=== PATIENT | male | born 1955 | race Caucasian/White ===

== ENCOUNTER 2025-01-25 10:55 | Inpatient (IN) ==
[~2025-01-25 10:55] MED LIST: KETAMINE HCL ONE; PRECEDEX INJ VIAL ONE; XYLOCAINE 2 % (PLAIN) ONE
[2025-01-25] MEDS ORDERED: ULTANE GAS IN ONE (11:00)
[2025-01-25] MEDS ORDERED: KETAMINE HCL ONE (11:00)
[2025-01-25] MEDS ORDERED: PRECEDEX INJ VIAL ONE (11:00)
[2025-01-25] MEDS ORDERED: XYLOCAINE 2 % (PLAIN) ONE (11:00)
--- NOTE | 2025-01-25 11:30 | DR.EXTPAIN ---
HPI Time seen Time Seen by Provider: 01/25/25 11:28 Complaint/Symptoms Chief Complaint Doctor Comments: Patient was told to come to the emergency room by personnel at Dr. Wahl office the [facility] to further evaluate drainage from his right ankle after having surgery on that ankle on December 26 of this year. PMH PMH Past Surgical History: Yes Family History Family Medical History: Diabetes Mellitus, [place] and Hypertension ROS Review of Systems Constitutional: Other (Swelling of right foot and ankle with discharge or drainage for 2 days) Eyes: No Symptoms Reported ENTM: No Symptoms Reported Respiratoy: No Symptoms Reported Cardiovascular: No Symptoms Reported Gastrointestinal/Abdominal: No Symptoms Reported Genitourinary: No Symptoms Reported Neurological: No Symptoms Reported Musculoskeletal: No Symptoms Reported Integumentary: No Symptoms Reported Hematologic/Lymphatic: No Symptoms Reported Endocrine: No Symptoms Reported Psychiatric: No Symptoms Reported PE Vital Signs Vitals: Vital Signs Temperature 97.9 F Pulse Rate 62 Pulse Rate 61 Pulse Rate 63 Pulse Rate 63 Pulse Rate 64 Pulse Rate 52 Pulse Rate 61 Pulse Rate 60 Pulse Rate 55 Pulse Rate 70 Pulse Rate 62 Pulse Rate 64 Pulse Rate 65 Pulse Rate 61 Pulse Rate 66 Pulse Rate 61 Pulse Rate 67 Pulse Rate 69 Pulse Rate 73 Respiratory Rate 20 Blood Pressure 140/63 Blood Pressure 149/61 Blood Pressure 148/65 Blood Pressure 161/70 Blood Pressure 138/58 Blood Pressure 133/64 Blood Pressure 115/56 Blood Pressure 128/59 Blood Pressure 123/53 O2 Sat by Pulse Oximetry 93 O2 Sat by Pulse Oximetry 93 O2 Sat by Pulse Oximetry 93 O2 Sat by Pulse Oximetry 94 O2 Sat by Pulse Oximetry 93 O2 Sat by Pulse Oximetry 92 O2 Sat by Pulse Oximetry 92 O2 Sat by Pulse Oximetry 92 O2 Sat by Pulse Oximetry 93 O2 Sat by Pulse Oximetry 97 O2 Sat by Pulse Oximetry 93 O2 Sat by Pulse Oximetry 95 O2 Sat by Pulse Oximetry 93 O2 Sat by Pulse Oximetry 93 O2 Sat by Pulse Oximetry 93 O2 Sat by Pulse Oximetry 91 O2 Sat by Pulse Oximetry 91 General Limitations: Physical Limitation (limited ambulation due to r foot pain and swelling) Head Head Exam: Normal Inspection Eyes Eye exam: Normal Appearance ENT ENT Exam: Normal Exam and Normal Oropharynx Neck Neck Exam: Normal Inspection, Full ROM and Trachea Midline Chest Chest Inspection: Normal Inspection and Symmetric Chest Wall Rise Respiratory Respiratory Exam: Normal Lung Sounds Bilat Respiratory Exam: Bilateral: Clear to Auscultation Cardiovascular Cardiovascular Exam: Normal Rhythm Abdominal Exam Abdominal Exam: Normal Inspection, Normal Bowel Sounds and Soft Extremities Extremities Exam: Tenderness, Edema (r foot/ankle) and Joint Swelling Upper Extremities Shoulder Exam: Normal Inspection Arm Exam: Normal Inspection Elbow Exam: Normal Inspection Forearm Exam: Normal Inspection Hand Exam: Normal Inspection Neuromotor Exam: Normal Exam Neurosensory Exam: Normal Exam Lower Extremities Hip/Pelvis Exam: Normal Inspection Upper Leg Exam: Normal Inspection Knee Exam: Normal Inspection Lower Leg Exam: Tenderness, Swelling and Erythema (r foot and ankle with drainage from r ankle) Ankle Exam: Tenderness, Swelling and Erythema (r ankle) Foot/Toe Exam: Tenderness, Swelling and Erythema (r foot) Gait Exam: Not Tested/Not Observed MDM Differential Diagnosis Differential Diagnosis: Other (osteomyelitis,cellulitis) COURSE Treatment Treatment: This patient remained relatively stable during ER evaluation. We did do a metabolic panel as patient and the sodium was 133 potassium was 5.2 BUN was 88 creatinine was 3.45 blood sugar 325 his GFR was 19 this patient also had a CBC done WBC was 9.9 hemoglobin was 9.5 hematocrit 27.8 platelets 139. His lactic acid level is only 1.[address] a CT scan of his right ankle and foot and they stated was concerning for osteomyelitis and septic arthritis with the changes that occurred there. [facility] Labs Reviewed 01/31/25 05:41 01/31/25 05:41 Laboratory: 01/25/25 11:40 Blood Blood Culture Gram Stain - Final 01/25/25 11:40 Blood Blood Culture - Final Staphylococcus Aureus 01/25/25 11:35 Blood Blood Culture Gram Stain - Final 01/25/25 11:35 Blood Blood Culture - Final Staphylococcus Aureus 01/25/25 16:15 Ankle - Right Wound Gram Stain - Final 01/25/25 16:15 Ankle - Right Wound Culture - Final Staphylococcus Aureus 01/25/25 11:32 Ankle - Right Wound Gram Stain - Final 01/25/25 11:32 Ankle - Right Wound Culture - Final Staphylococcus Aureus 01/25/25 12:47 Ankle - Right Wound Gram Stain - Final 01/25/25 12:47 Ankle - Right Wound Culture - Final Staphylococcus Aureus 01/25/25 16:12 Ankle - Right Wound Gram Stain - Final 01/25/25 16:12 Ankle - Right Wound Culture - Final Staphylococcus Aureus WBC 9.9 X10^3/uL (3.6-10.0) 01/25/25 11:35 RBC 3.12 X10^6/uL (4.7-6.0) L 01/25/25 11:35 Hgb 9.5 g/dL (13.5-18.0) L 01/25/25 11:35 Hct 27.8 % (42.0-54.0) L 01/25/25 11:35 MCV 89.2 fL (80.0-100.0) 01/25/25 11:35 MCH 30.5 pg (27.0-34.0) 01/25/25 11:35 MCHC 34.2 g/dL (33.0-35.0) 01/25/25 11:35 RDW 13.4 % (11.6-16.5) 01/25/25 11:35 Plt Count 139 X10^3/uL (150.0-450.0) L 01/25/25 11:35 MPV 9.0 fL (7.4-11.0) 01/25/25 11:35 Neut % (Auto) 87.8 % (42.0-75.0) H 01/25/25 11:35 Lymph % (Auto) 5.0 % (21.0-51.0) L 01/25/25 11:35 Crenshaw % (Auto) 6.5 % (0.0-13.0) 01/25/25 11:35 Eos % (Auto) 0.1 % (0.9-2.9) L 01/25/25 11:35 Baso % (Auto) 0.6 % (0.2-1.0) 01/25/25 11:35 Neut # (Auto) 8.7 x10^3/uL (2.2-4.8) H 01/25/25 11:35 Lymph # (Auto) 0.5 X10^3/uL (1.3-2.9) L 01/25/25 11:35 Crenshaw # (Auto) 0.6 x10^3/uL (0.3-0.8) 01/25/25 11:35 Eos # (Auto) 0.0 x10^3/uL (0.0-0.2) 01/25/25 11:35 Baso # (Auto) 0.1 X10^3/uL (0.0-0.1) 01/25/25 11:35 Absolute Nucleated RBC 0.0 /100WBC 01/25/25 11:35 Sample Site Rr 01/25/25 12:20 ABG pH 7.430 (7.35-7.45) 01/25/25 12:20 ABG pCO2 33.0 mmHg (35.0-45.0) L 01/25/25 12:20 ABG pO2 53.0 mmHg (80.0-100.0) L 01/25/25 12:20 ABG HCO3 21.9 mmol/L (22-26) L 01/25/25 12:20 ABG O2 Saturation 88.0 % (90-100) L 01/25/25 12:20 ABG Base Excess -1.8 mmol/L (-2.0-2.0) 01/25/25 12:20 Riley Test Positive 01/25/25 12:20 A-a Gradient 55.0 mmHg 01/25/25 12:20 FiO2 21.0 01/25/25 12:20 Blood Gas Comments Tolerated well au 01/25/25 12:20 Sodium 128 mmol/L (136-145) L 01/25/25 11:35 Corrected Sodium 133 mmol/L (136-145) L 01/25/25 11:35 Potassium 5.2 mmol/L (3.5-5.1) H 01/25/25 11:35 Chloride 96 mmol/L (98-107) L 01/25/25 11:35 Carbon Dioxide 23.6 mmol/L (21-32) 01/25/25 11:35 BUN 88 mg/dL (7-18) H 01/25/25 11:35 Creatinine 3.45 mg/dL (0.70-1.30) H 01/25/25 11:35 Est GFR (MDRD) Af Amer 23 (>60) L 01/25/25 11:35 Est GFR (MDRD) Non-Af 19 (>60) L 01/25/25 11:35 Glucose 325 mg/dL (65-99) H 01/25/25 11:35 Lactic Acid 1.7 mmol/L (0.4-2.0) 01/25/25 11:35 Calcium 9.4 mg/dL (8.5-10.1) 01/25/25 11:35 Corrected Calcium 10.8 mg/dL (8.5-10.1) H 01/25/25 11:35 Total Bilirubin 0.70 mg/dL (0.2-1.0) 01/25/25 11:35 AST 27 Units/L (15-37) 01/25/25 11:35 ALT 21 Units/L (12-78) 01/25/25 11:35 Alkaline Phosphatase 106 Units/L (46-116) 01/25/25 11:35 Total Protein 7.9 g/dL (6.4-8.2) 01/25/25 11:35 Albumin 2.2 g/dL (3.4-5.0) L 01/25/25 11:35 Globulin 5.7 g/dL (2.5-4.5) H 01/25/25 11:35 Albumin/Globulin Ratio 0.4 Ratio (1.1-2.1) L 01/25/25 11:35 SARS-CoV-2 (PCR) Negative (NEGATIVE) 01/25/25 11:52 Influenza Type A (PCR) Negative (NEGATIVE) 01/25/25 11:52 Influenza Type B (PCR) Negative (NEGATIVE) 01/25/25 11:52 RSV (PCR) Negative (NEGATIVE) 01/25/25 11:52 Tissue Pathology See comment. 01/25/25 16:16 Opioid Opioid Risk Tool Age (Espinoza box if 16-45): No Total: 0 Total Score Risk Category: Low Risk Copyright: Richard KLINE predicting aberrant behaviors Discharge Plan Diagnosis Discharge Problem: Ankle osteomyelitis, right, Septic arthritis, Renal insufficiency Discharge Plan Patient Disposition: 09 ADMITTED INPATIENT Condition: Stable
[2025-01-25 12:03] LABS: BASOPHILS # (AUTO) 0.1 X10^3/uL (0.0-0.1); BASOPHILS % (AUTO) 0.6 % (0.2-1.0); EOSINOPHILS % (AUTO) 0.1 % (0.9-2.9); HEMATOCRIT 27.8 % (42.0-54.0); HEMOGLOBIN 9.5 g/dL (13.5-18.0); LYMPHOCYTES # (AUTO) 0.5 X10^3/uL (1.3-2.9); MEAN CORPUSCULAR HEMOGLOBIN 30.5 pg (27.0-34.0); MEAN CORPUSCULAR HGB CONC 34.2 g/dL (33.0-35.0); MEAN CORPUSCULAR VOLUME 89.2 fL (80.0-100.0); MONOCYTES # (AUTO) 0.6 x10^3/uL (0.3-0.8); MONOCYTES % (AUTO) 6.5 % (0.0-13.0); NEUTROPHILS # (AUTO) 8.7 x10^3/uL (2.2-4.8); NEUTROPHILS % (AUTO) 87.8 % (42.0-75.0); PLATELET COUNT 139 X10^3/uL (150.0-450.0); RED BLOOD COUNT 3.12 X10^6/uL (4.7-6.0); RED CELL DISTRIBUTION WIDTH 13.4 % (11.6-16.5); WHITE BLOOD COUNT 9.9 X10^3/uL (3.6-10.0)
[2025-01-25 12:10] LABS: ALBUMIN 2.2 g/dL (3.4-5.0); CALCIUM 9.4 mg/dL (8.5-10.1); CARBON DIOXIDE 23.6 mmol/L (21-32); COR CA(FOR HYPOALB) 10.8 mg/dL (8.5-10.1); CREATININE 3.45 mg/dL (0.70-1.30); POTASSIUM 5.2 mmol/L (3.5-5.1); TOTAL PROTEIN 7.9 g/dL (6.4-8.2)
[2025-01-25 12:25] LABS: ABG ALLEN TEST POSITIVE; ABG BASE EXCESS -1.8 mmol/L (-2.0-2.0); ABG HCO3 21.9 mmol/L (22-26)
--- NOTE | 2025-01-25 14:27 | CT ---
EXAM: CT RIGHT ANKLE WITHOUT IV CONTRAST HISTORY: rt ankle wound, s/p surgery; COMPARISON: None available TECHNIQUE: Axial CT images were obtained through the right ankle without IV contrast. Coronal and sagittal reformatted images were included. All CT scans at this facility use dose modulation, iterative reconstruction, and/or weight based dosing when appropriate to reduce radiation dose to as low as reasonably achievable. FINDINGS: Lateral cutaneous/subcutaneous wound/ulcer superficial to the lateral malleolus and lateral calcaneus with adjacent punctate subcutaneous air foci. There is adjacent soft tissue thickening that appears to extend to the calcaneus and ankle. There is cortical destruction with erosive changes in the talonavicular joint, the posterior subtalar joint, as well as the distal fibula along the inferomedial aspect. There is hindfoot varus deformity with hindfoot sag. No acute fracture or dislocation. Diffuse muscle atrophy. Moderate diffuse subcutaneous edema. IMPRESSION: Lateral ankle cutaneous/subcutaneous skin wound with punctate adjacent soft tissue air that extends to the ankle. Adjacent cortical destruction and erosive changes involving the subtalar joint, talonavicular joint, and distal fibula, concerning for osteomyelitis and septic arthritis. There is hindfoot varus deformity with hindfoot sag and underlying neuropathic arthropathy may have similar appearance. THIS IS AN ELECTRONICALLY VERIFIED FINAL REPORT 01/25/2025 2:23 PM - Electronically signed by Aston Baldwin MD
[2025-01-25] MEDS ORDERED: ANCEF VIAL 1 GRAM 2 G in NS 100 ML IV 100 ML IV PRN (15:16)
[2025-01-25] MEDS: VERSED ONE (15:16)
[2025-01-25] MEDS: FENTANYL VIAL INJ 100 mcg ONE (15:16)
[2025-01-25] MEDS: DIPRIVAN VIAL 20 ML ONE (15:19)
[2025-01-25] MEDS: NS 100 ML IV 100 ML ONE (15:19)
--- NOTE | 2025-01-25 15:29 | DR.CONSULT ---
CONSULT Consultation for Day of: Date: 01/25/25 Chief Complaint Chief Complaint: ankle infection Allergies Allergies Allergy/AdvReac Type Severity Reaction Status Date / Time No Known Drug Allergies Allergy Verified 04/07/22 08:18 History of Present Illness History of Present Illness: patient who had surgery many weeks ago presents today for worsening appearance of the ankle with drainage and has started feeling bad. patient states has had a lot of drainage over the last couple days and today seems to be getting worse. Past Medical History Past Medical History: Coronary Artery Disease, Diabetes, Dyslipidemia, [place], Renal Disease and Sleep Apnea Past Surgical History Surgical History: CABG/Valve Surgery and Ortho Surgery Family History Family Medical History: Diabetes Mellitus, [place] and Hypertension Social History Does patient currently use any type of tobacco product: No Have you used tobacco products in the last 12 months: No Type of Tobacco Use: None Does any household member use tobacco: No Alcohol Use: None Medications Home Medications: No Known Drug Allergies Allergy (Verified 04/07/22 08:18) Physical Exam Vital Signs: Vital Signs Temperature 97.9 F Pulse Rate 60 Pulse Rate 55 Pulse Rate 70 Pulse Rate 62 Pulse Rate 64 Pulse Rate 65 Pulse Rate 61 Pulse Rate 66 Pulse Rate 61 Pulse Rate 67 Pulse Rate 69 Pulse Rate 73 Respiratory Rate 20 Blood Pressure 148/65 Blood Pressure 161/70 Blood Pressure 138/58 Blood Pressure 133/64 Blood Pressure 115/56 Blood Pressure 128/59 Blood Pressure 123/53 O2 Sat by Pulse Oximetry 92 O2 Sat by Pulse Oximetry 93 O2 Sat by Pulse Oximetry 97 O2 Sat by Pulse Oximetry 93 O2 Sat by Pulse Oximetry 95 O2 Sat by Pulse Oximetry 93 O2 Sat by Pulse Oximetry 93 O2 Sat by Pulse Oximetry 93 O2 Sat by Pulse Oximetry 91 O2 Sat by Pulse Oximetry 91 Skin: Other (pulses non palpable on right due to edema. CFT instant. ) Musculoskeletal: Right and Ankle (increased calor, erythema locally. has edema and medial and lateral bullae of ankle. no crepitation with palpation but does have seropurulent fluid from ankle. patient with pain in ankle with ROM but no crepitation. ) Plan (1) Other specified local infections of the skin and subcutaneous tissue: Status: Acute Narrative Support Text: IV abx given in ER. will need washout of ankle due to CT findings. will then need hospital stay due to infection. may simona IV abx. will get vascular studies and may need intervention in near future, heavy calcifications on CT seen. (2) Charcot's joint, right ankle and foot: Status: Acute Narrative Support Text: has errosions consistent with charcot but infection superficially and with free air on CT concerning for septic STJ. will washout and place abx sparkler.
[2025-01-25] MEDS: ANCEF VIAL 1 GRAM ONE (15:42)
[2025-01-25] MEDS: NS 1,000 ML IV 1,000 ML ONE (15:43)
[2025-01-25] MEDS: NS 1,000 ML IV 600 ML IV PRN (15:45)
[2025-01-25] MEDS: BETADINE SOLN ONE (15:55)
[2025-01-25] MEDS: CLEOCIN 600 MG IV PREMIX 600 MG/50 ML BAG IV ONE (15:55)
[2025-01-25] MEDS: MARCAINE 0.25% INJ ONE (15:55)
[2025-01-25] MEDS: VERSED IVP PRN (15:57)
[2025-01-25] MEDS: DIPRIVAN VIAL 200 ML IVP PRN (16:02)
[2025-01-25] MEDS: KETAMINE HCL IV PRN (16:05)
[2025-01-25] MEDS: VANCOMYCIN HCL ONE (16:08)
[2025-01-25] MEDS: TOBRAMYCIN SULFATE ONE (16:08)
[2025-01-25] MEDS: FENTANYL VIAL INJ 100 mcg IVP PRN (16:08)
[2025-01-25] MEDS: CLEOCIN 600 MG IV PREMIX 600 MG/50 ML BAG IV PRN (16:14)
[2025-01-25] MEDS: PRECEDEX INJ VIAL IVP PRN (16:18)
[2025-01-25] MEDS ORDERED: ZOFRAN INJ 4 MG VIAL IVP PRN (16:39)
--- NOTE | 2025-01-25 16:52 | RAD ---
EXAM: FRONTAL VIEW CHEST X-RAY HISTORY: Short of breath COMPARISON: 12/18/2024 FINDINGS: Midl ine sternotomy wires are again noted but are poorly visualized on this exam No focal consolidation is seen. The heart size is within normal limits. The mediastinum is unremarkable. There is no evidence of pleural effusion or gross pneumothorax. The trachea is midline. IMPRESSION: No focal consolidation is seen. The heart size is normal. THIS IS AN ELECTRONICALLY VERIFIED FINAL REPORT 01/25/2025 4:49 PM - Electronically signed by Genaro Poon MD
[2025-01-25] MEDS: NS 1,000 ML IV 1,000 ML IV SCH (17:16)
[2025-01-25 17:55] VITALS: BMI 40.7
[2025-01-25] MEDS: TYLENOL 325 MG TAB PO PRN (18:57)
[2025-01-25] MEDS: DILAUDID INJ IVP PRN (18:58)
[2025-01-25] MEDS ORDERED: PATIENT'S HOME MEDICATION (Rosuvastatin 40 mg tablet) PO SCH (21:00)
[2025-01-25] MEDS: CRESTOR TAB 10 MG PO SCH (21:44)
[2025-01-25] MEDS: COLACE CAP 100 MG PO SCH (21:45)
[2025-01-25] MEDS: CLEOCIN 600 MG IV PREMIX 600 MG/50 ML BAG IV SCH (21:46)
[2025-01-25] MEDS: SNACK - Diabetic Appropriate PO SCH (21:47)
[2025-01-25] MEDS: HumuLIN 70/30 (NovoLIN 70/30) SC SCH (21:48)
[2025-01-25] MEDS: NORCO 5/325 MG TAB PO PRN (21:54)
[2025-01-26] MEDS: NovoLIN R (or HumuLIN R) SUBCUT PRN (05:25)
[2025-01-26 05:40] LABS: CALCIUM 9.3 mg/dL (8.5-10.1); CARBON DIOXIDE 22.5 mmol/L (21-32); CREATININE 2.84 mg/dL (0.70-1.30); POTASSIUM 4.7 mmol/L (3.5-5.1)
[2025-01-26] MEDS: NS 1,000 ML IV 1,000 ML IV ONE (08:24)
[2025-01-26] MEDS: COREG TAB 25 MG PO SCH (08:25)
[2025-01-26] MEDS: ALDACTONE TAB 25 MG PO SCH (08:25)
[2025-01-26] MEDS: MICARDIS PO SCH (08:26)
[2025-01-26] MEDS: ZESTRIL TAB 40 MG PO SCH (08:26)
[2025-01-26] MEDS: PLAVIX PO SCH (08:26)
--- NOTE | 2025-01-26 09:44 | NOTE.SOAP ---
Soap Note Note for Day of Date of Exam: 01/26/25 Subjective Data Subjective Data: POD#1 InD Right foot. Denies any nausea, vomiting, chills, shortness of breath, chest pain. Did have slight fever through night. Objective Data Objective Data: Right Lower Extremity Exam: Dressing taken down. Antibiotic rods in place to lateral and medial midfoot/hindfoot. Redness is down. Swelling down slightly. Rewrapped with 4x4s, ABD, YOSHI. no signs or symptoms of DVT or PE. Assessment Assessment: POD#1 InD Right foot/ankle Plan Plan: - WB in Boot. - VSS. ad slight fever. - Labs have not been drawn yet. - Home medication restarted last night. - cultures showing gram positive gocci on day 1 of both cultures. - Pathology not back yet. - On Clindamycin right not due to creatine. - Obtaining ID consult. - Ordering arterial duplex. - recommend Daniel be consulted on patient as well for arterial disease to right leg. - Will see patient on Tuesday and pull antibiotic rods then.
[2025-01-27 05:55] LABS: BASOPHILS % (AUTO) 0.3 % (0.2-1.0); EOSINOPHILS # (AUTO) 0.1 x10^3/uL (0.0-0.2); EOSINOPHILS % (AUTO) 1.3 % (0.9-2.9); HEMATOCRIT 25.2 % (42.0-54.0); HEMOGLOBIN 8.6 g/dL (13.5-18.0); LYMPHOCYTES # (AUTO) 1.1 X10^3/uL (1.3-2.9); MEAN CORPUSCULAR HEMOGLOBIN 30.5 pg (27.0-34.0); MEAN CORPUSCULAR HGB CONC 34.2 g/dL (33.0-35.0); MEAN CORPUSCULAR VOLUME 89.2 fL (80.0-100.0); MEAN PLATELET VOLUME 8.9 fL (7.4-11.0); MONOCYTES # (AUTO) 0.6 x10^3/uL (0.3-0.8); MONOCYTES % (AUTO) 5.3 % (0.0-13.0); NEUTROPHILS # (AUTO) 9.1 x10^3/uL (2.2-4.8); NEUTROPHILS % (AUTO) 83.1 % (42.0-75.0); PLATELET COUNT 144 X10^3/uL (150.0-450.0); RED BLOOD COUNT 2.82 X10^6/uL (4.7-6.0); RED CELL DISTRIBUTION WIDTH 13.8 % (11.6-16.5)
[2025-01-27 06:05] LABS: ALBUMIN 1.5 g/dL (3.4-5.0); CALCIUM 9.1 mg/dL (8.5-10.1); CARBON DIOXIDE 22.2 mmol/L (21-32); COR CA(FOR HYPOALB) 11.1 mg/dL (8.5-10.1); CREATININE 2.96 mg/dL (0.70-1.30); POTASSIUM 4.4 mmol/L (3.5-5.1); TOTAL PROTEIN 6.9 g/dL (6.4-8.2)
[2025-01-27] MEDS ORDERED: PHARMACY CONSULT - VANCOMYCIN XX SCH (11:00)
[2025-01-27] MEDS: PROCRIT or EPOGEN VIAL 10,000 UNITS SC ONE (11:45)
[2025-01-27] MEDS: NS 100 ML IV 100 ML with VENOFER 100 MG IV ONE (11:45)
[2025-01-27] MEDS: ROCEPHIN VIAL 1 GRAM 1 G in NS 100 ML IV 100 ML IV SCH (12:34)
[2025-01-27] MEDS: VANCOMYCIN IV *PREMIX 2 G/400 ML BAG 2 G/400 ML PIGGYBACK IV ONE (13:28)
[2025-01-28 06:12] LABS: BASOPHILS # (AUTO) 0.1 X10^3/uL (0.0-0.1); BASOPHILS % (AUTO) 0.5 % (0.2-1.0); EOSINOPHILS # (AUTO) 0.3 x10^3/uL (0.0-0.2); EOSINOPHILS % (AUTO) 2.8 % (0.9-2.9); HEMATOCRIT 24.2 % (42.0-54.0); HEMOGLOBIN 8.3 g/dL (13.5-18.0); LYMPHOCYTES % (AUTO) 9.8 % (21.0-51.0); MEAN CORPUSCULAR HEMOGLOBIN 30.5 pg (27.0-34.0); MEAN CORPUSCULAR HGB CONC 34.2 g/dL (33.0-35.0); MEAN CORPUSCULAR VOLUME 89.1 fL (80.0-100.0); MEAN PLATELET VOLUME 8.6 fL (7.4-11.0); MONOCYTES # (AUTO) 0.6 x10^3/uL (0.3-0.8); MONOCYTES % (AUTO) 5.6 % (0.0-13.0); NEUTROPHILS # (AUTO) 8.3 x10^3/uL (2.2-4.8); NEUTROPHILS % (AUTO) 81.3 % (42.0-75.0); PLATELET COUNT 164 X10^3/uL (150.0-450.0); RED BLOOD COUNT 2.72 X10^6/uL (4.7-6.0); RED CELL DISTRIBUTION WIDTH 13.8 % (11.6-16.5); WHITE BLOOD COUNT 10.2 X10^3/uL (3.6-10.0)
[2025-01-28 06:24] LABS: ALANINE AMINOTRANSFERASE 56 Units/L (12-78); ALBUMIN 1.5 g/dL (3.4-5.0); ALKALINE PHOSPHATASE 104 Units/L (46-116); ASPARTATE AMINO TRANSFERASE 62 Units/L (15-37); BLOOD UREA NITROGEN 84 mg/dL (7-18); CALCIUM 8.9 mg/dL (8.5-10.1); CARBON DIOXIDE 20.6 mmol/L (21-32); CHLORIDE 103 mmol/L (98-107); COR CA(FOR HYPOALB) 10.9 mg/dL (8.5-10.1); COR NA(FOR HYPERGLY) 138 mmol/L (136-145); CREATININE 2.89 mg/dL (0.70-1.30); GLUCOSE 174 mg/dL (65-99); POTASSIUM 4.7 mmol/L (3.5-5.1); SODIUM 136 mmol/L (136-145); TOTAL PROTEIN 6.8 g/dL (6.4-8.2); eGFR NON BLACK RACES 23 (>60)
[2025-01-28 06:28] LABS: TOTAL PSA < 0.13 ng/mL (0.13-4.0)
--- NOTE | 2025-01-28 08:32 | NOTE.SOAP ---
Soap Note Note for Day of Date of Exam: 01/28/25 Subjective Data Subjective Data: Patient doing well this morning. His cultures grew staph. Blood cultures show the same. No repeat cultures yet, had CM order some this morning. Saw telehealth doctor this weekend. Started him on IV vanc and rocephin. ID doctor should see him this morning. Hes feeling much better today but has had some lower back pain. Objective Data Objective Data: Right Lower Extremity Exam: incision to lateral midfoot/hindfoot with sutures in place. Antibiotic kimberly in place, removed that this morning. No gross drainage. Surrounding area wet from antibiotics. Incision to medial midfoot with sutures in place. Antibiotic kimberly in place, removed that this morning. No gross drainage or pus. Surrounding area to wet fro m antibiotics. Assessment Assessment: 69 year old M infection to right foot with cultures from foot and blood cultures showing Staph aureus Plan Plan: - VSS - WBC 10.2. - Culture from foot showing staph - Blood culture showing staph, repeat blood cultures ordered today. - Was on IV Clinda, saw critical care doctor over weekend (not ID) placed him on Vanc and Rocephin. - Obtaining vascular studies today. Patient and his are okay with getting studies but are denying intervention from Dr. Sanchez. They are declining any intervention from him. They are okay with him obtaining a venous study from him. - ID supposed to see him today. - Removed antibiotic beads today, dressed with betadine dressing today to both sides. Can change as needed. - Expect patient to stay a couple more days unless blood cultures come back negative today.
[2025-01-28] MEDS: FLOMAX PO SCH (09:51)
--- NOTE | 2025-01-28 09:57 | VAS ---
EXAMINATION: LOWER EXT VENOUS, BILATERAL HISTORY: swollen legs with chronic skin changes; RT FOOT INFECTION, SWOLLEN LEGS WITH CHRONIC SKIN CHNAGES . COMPARISON: None. TECHNIQUE: Real-time, grayscale, color flow, Doppler and compression of the venous system was performed. FINDINGS: The bilateral common femoral vein(s), superficial femoral vein(s), popliteal vein(s) demonstrate normal compressibility, augmentation, respiratory variation and color flow. The posterior tibial vein(s) are patent. Soft tissue edema is noted with no focal collection.. There is no sonographic evidence for Landis's cyst. . IMPRESSION: There is no sonographic evidence for acute DVT within bilateral lower extremities. THIS IS AN ELECTRONICALLY VERIFIED FINAL REPORT 01/28/2025 9:53 AM - Electronically signed by Jose David Guzman MD
--- NOTE | 2025-01-28 09:59 | VAS ---
EXAMINATION: LOWER EXT ARTERIAL HISTORY: PVD; RT FOOT INFECTION, SWOLLEN LEGS WITH CHRONIC SKIN CHANGES . COMPARISON STUDY: None. TECHNIQUE: Pulsed wave Doppler and color Doppler imaging of the bilateral lower extremity arterial system was performed. FINDINGS: PSV (cm/sec) waveform Right MAINTENANCE MACHINIST 145 biphasic Right SFA Prox. 147 biphasic Right SFA mid 136 monophasic Right SFA distal 114 monophasic Right Pop art 102 monophasic Right DPA 65 monophasic Right IN PROCESS INSPECTOR 152 monophasic Left MAINTENANCE MACHINIST 139 biphasic Left SFA Prox. 117 biphasic Left SFA mid 89 biphasic Left SFA distal 112 biphasic Left Pop art 115 biphasic Left DPA 24 monophasic Left IN PROCESS INSPECTOR 103 biphasic IMPRESSION: No sonographic evidence for hemodynamically significant stenosis. Mild inflow disease bilaterally from common femoral artery through the distal runoff THIS IS AN ELECTRONICALLY VERIFIED FINAL REPORT 01/28/2025 9:56 AM - Electronically signed by Jose David Guzman MD
--- NOTE | 2025-01-28 10:52 | DR.CONSULT ---
CONSULT Consultation for Day of: Date: 01/26/25 Chief Complaint Chief Complaint: Draining wound from the right ankle consistent with abscess Allergies Allergies Allergy/AdvReac Type Severity Reaction Status Date / Time No Known Drug Allergies Allergy Verified 04/07/22 08:18 History of Present Illness History of Present Illness: This is a 69-year-old male with history of diabetes history of coronary disease status post CABG in the past with renal insufficiency who had been seen by the podiatry service, I Dr. Fletcher and undergone intervention. Patient now with red hot swollen ankle with abscess. Patient underwent incision and drainage of this. Infectious diseases on board of the care of this patient. I thus see the patient in consultation. He denies any significant rest pain. 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 Currently the right foot is in a dressing I did not take it down. He is significant swelling and hemosiderin deposition consistent with venous insufficiency as well as probable calcified arteries. Past Medical History Past Medical History: Coronary Artery Disease, Diabetes, Dyslipidemia, [place], Renal Disease and Sleep Apnea Past Surgical History Surgical History: CABG/Valve Surgery and Ortho Surgery Family History Family Medical History: Diabetes Mellitus, [place], Coronary Artery Disease, Heart Failure and Hypertension Social History Does patient currently use any type of tobacco product: No Have you used tobacco products in the last 12 months: No Type of Tobacco Use: None Does any household member use tobacco: No Alcohol Use: None Drug Use: None Medications Home Medications: No Known Drug Allergies Allergy (Verified 04/07/22 08:18) see list Review of Systems Constitutional: See HPI Eyes: No Symptoms Reported ENT: No Symptoms Reported Respiratory: No Symptoms Reported Cardiovascular: No Symptoms Reported Genitourinary: No Symptoms Reported Musculoskeletal: See HPI Skin: See HPI Neurological: No Symptoms Reported Physical Exam Vital Signs: Vital Signs Temperature 98.8 F Temperature 98.3 F Pulse Rate [Right Brachial] 60 Pulse Rate [Right Brachial] 63 Respiratory Rate 19 Respiratory Rate 19 Respiratory Rate 19 Respiratory Rate 19 Respiratory Rate 19 Blood Pressure [Right Arm] 137/64 Blood Pressure [Right Arm] 125/83 O2 Sat by Pulse Oximetry 96 O2 Sat by Pulse Oximetry 96 Oriented: Normal, Time, Person and Place Eyes: Normal Ear: Normal Nose: Normal Throat: Normal Respiratory: Clear Throughout Cardiovascular: Normal and Other (Both feet warm. Patient scheduled for lower extreme arterial Doppler studies ) : Normal and Other (Next urine but creatinine is elevated at 3.45 on admission now down to 2.84 after hydration) Palpation: Normal Tenderness: Normal Skin: Other (Multiple toes amputated both feet. Right foot in a compressive dressing) Psychiatric: Normal Mood Description: Calm Affect: Anxious Speech Pattern: Clear and Appropriate Plan (1) Other specified local infections of the skin and subcutaneous tissue: Status: Acute (2) Charcot's joint, right ankle and foot: Status: Acute Plan: Patient's creatinine too high for CT angiogram will obtain lower extremity Doppler studies. Also has stigmata of venous insufficiency will obtain venous insufficiency studies.
--- NOTE | 2025-01-28 10:55 | NOTE.SOAP ---
Soap Note Note for Day of Date of Exam: 01/27/25 Subjective Data Subjective Data: See consultation for details. Patient unchanged. Objective Data Temperature: 98.4 F Pulse Rate: 65 Respiratory Rate: 20 Blood Pressure: 111/54 O2 Sat by Pulse Oximetry: 97 Objective Data: exam unchanged both feet Assessment Assessment: Abscess right ankle secondary to Charcot joint Plan Plan: Complete arterial Doppler and venous insufficiency studies.
[2025-01-28] MEDS: VANCOMYCIN IV *PREMIX 2 G/400 ML BAG 2 G/400 ML PIGGYBACK IV SCH (13:48)
[2025-01-28] MEDS ORDERED: ANCEF VIAL 1 GRAM 2 G in NS 100 ML IV 100 ML IV SCH (15:00)
[2025-01-28] MEDS ORDERED: NS 100 ML IV 0 ML ONE (20:40)
[2025-01-28] MEDS: ANCEF VIAL 1 GRAM 2 G in NS 100 ML IV 100 ML IV SCH (21:17)
--- NOTE | 2025-01-28 22:22 | NOTE.SOAP ---
Soap Note Note for Day of Date of Exam: 01/28/25 Subjective Data Subjective Data: Patient status post incision and drainage of right foot/osteomyelitis. Patient's cultures are methicillin-resistant Staphylococcus aureus. Has been changed to Ancef per Dr. Reagan. Patient had venous Doppler study showing no DVT. Objective Data Temperature: 97.8 F Pulse Rate: 51 Respiratory Rate: 20 Blood Pressure: 144/53 O2 Sat by Pulse Oximetry: 93 Objective Data: Right foot with dressing no significant drainage, MSSA growing from the wound culture. Blood cultures negative. Changed to Ancef. No deep venous thrombosis venous Doppler although venous insufficiency test was the one that was ordered. Arterial Doppler study shows complete monophasic flow throughout the right leg except for the common femoral artery. There is biphasic flow in the left side. Velocities appear to be relatively sarah,l however. Assessment Assessment: Infection/osteomyelitis right foot with MSSA. Patient elevated creatinine of 2.89. I am concerned that the flow is inadequate in the right foot with monophasic flow all the way down the legs into the common femoral artery. Plan Plan: Patient's creatinine too high for CT angiogram. Will consider on table arteriogram to limit dye load. However, patient has told the nurses that he "does not want a vascular consultation. I am unsure as to what that means at this time
[2025-01-29 05:54] LABS: BASOPHILS % (AUTO) 0.2 % (0.2-1.0); EOSINOPHILS # (AUTO) 0.2 x10^3/uL (0.0-0.2); EOSINOPHILS % (AUTO) 2.5 % (0.9-2.9); HEMATOCRIT 25.2 % (42.0-54.0); HEMOGLOBIN 8.5 g/dL (13.5-18.0); MEAN CORPUSCULAR HGB CONC 33.6 g/dL (33.0-35.0); MEAN CORPUSCULAR VOLUME 89.1 fL (80.0-100.0); MEAN PLATELET VOLUME 8.3 fL (7.4-11.0); MONOCYTES # (AUTO) 0.7 x10^3/uL (0.3-0.8); MONOCYTES % (AUTO) 7.2 % (0.0-13.0); NEUTROPHILS # (AUTO) 7.9 x10^3/uL (2.2-4.8); NEUTROPHILS % (AUTO) 80.1 % (42.0-75.0); PLATELET COUNT 213 X10^3/uL (150.0-450.0); RED BLOOD COUNT 2.83 X10^6/uL (4.7-6.0); WHITE BLOOD COUNT 9.9 X10^3/uL (3.6-10.0)
[2025-01-29 05:56] LABS: POTASSIUM 4.5 mmol/L (3.5-5.1)
[2025-01-29 06:12] LABS: ALBUMIN 1.5 g/dL (3.4-5.0); CALCIUM 8.9 mg/dL (8.5-10.1); CARBON DIOXIDE 17.2 mmol/L (21-32); COR CA(FOR HYPOALB) 10.9 mg/dL (8.5-10.1); CREATININE 2.97 mg/dL (0.70-1.30)
--- NOTE | 2025-01-29 09:17 | NOTE.SOAP ---
Soap Note Note for Day of Date of Exam: 01/29/25 Subjective Data Subjective Data: Patient purulent drainage from the ankle joint right foot. Patient with diabetes and Doppler study showing severe monophasic flow of the right leg below the femoral area in the groin. Objective Data Temperature: 97.4 F Pulse Rate: 57 Respiratory Rate: 19 Blood Pressure: 119/57 O2 Sat by Pulse Oximetry: 96 Objective Data: Dressing remains intact right foot Assessment Assessment: Infected right joint ankle this patient with diabetes and Charcot pathology. Monophasic flow arteries right leg Plan Plan: Currently patient has said he did not want a vascular consultation. However with his findings I believe he would require an onset of arteriogram to limit dye load with possible arterial invention of the right leg.
--- NOTE | 2025-01-29 13:22 | DR.UPDATE ---
H&P Update Prescription drug monitoring program results: PDMP was not reviewed H&P Reviewed: Yes Any changes to H&P?: No Patient was examined?: Yes Vital Signs: Temp Pulse Pulse Resp BP BP Pulse Ox 01/29/25 12:00 98.2 F 53 L 19 150/68 96 01/29/25 10:14 18 01/29/25 09:16 97.4 F L 57 L 19 119/57 96 01/29/25 08:10 01/29/25 08:00 97.4 F L 57 L 19 119/57 96 01/29/25 07:00 01/29/25 04:00 97.6 F 56 L 18 137/64 98 01/29/25 00:15 01/29/25 00:15 01/28/25 23:55 97.9 F 54 L 20 137/64 98 01/28/25 22:18 97.8 F 51 L 20 144/53 93 L 01/28/25 20:30 01/28/25 20:00 97.8 F 51 L 20 144/53 93 L 01/28/25 19:00 01/28/25 18:25 18 01/28/25 17:25 20 01/28/25 16:00 97.5 F L 51 L 20 108/53 98 01/28/25 12:00 98.2 F 58 L 20 119/59 97 01/28/25 10:55 98.4 F 65 20 111/54 97 01/28/25 10:21 18 01/28/25 09:51 19 01/28/25 08:05 01/28/25 07:41 98.8 F 60 19 137/64 96 01/28/25 06:59 01/28/25 04:23 19 01/28/25 04:00 98.3 F 63 19 125/83 96 01/28/25 03:53 19 01/28/25 00:00 98.6 F 55 L 19 117/59 97 01/27/25 20:32 01/27/25 20:00 98.1 F 57 L 19 120/57 96 01/27/25 19:55 19 01/27/25 19:25 20 01/27/25 19:00 01/27/25 15:28 97.3 F L 58 L 19 110/56 96 01/27/25 13:04 18 01/27/25 12:34 20 01/27/25 11:58 98.4 F 65 20 111/54 97 01/27/25 09:38 97 01/27/25 09:38 01/27/25 08:00 98.6 F 64 19 122/60 97 01/27/25 07:00 01/27/25 04:00 99.2 F 60 19 116/58 97 01/27/25 02:42 01/27/25 00:00 98.6 F 61 19 106/52 95 01/26/25 22:07 20 01/26/25 22:00 01/26/25 22:00 01/26/25 21:37 20 01/26/25 20:04 74 94 L 01/26/25 20:02 01/26/25 20:00 99.6 F 71 20 132/60 96 01/26/25 19:00 01/26/25 16:00 98.4 F 69 20 120/59 99 O2 Del Method O2 Flow Rate FiO2 01/29/25 12:00 Room Air 2 01/29/25 10:14 01/29/25 09:16 01/29/25 08:10 Room Air 2 01/29/25 08:00 Room Air 2 01/29/25 07:00 Room Air 01/29/25 04:00 CPAP 2 01/29/25 00:15 28 01/29/25 00:15 CPAP 28 01/28/25 23:55 Nasal Cannula 2 01/28/25 22:18 01/28/25 20:30 Nasal Cannula 2 01/28/25 20:00 Nasal Cannula 2 01/28/25 19:00 Nasal Cannula 2 01/28/25 18:25 01/28/25 17:25 01/28/25 16:00 Nasal Cannula 2 01/28/25 12:00 Nasal Cannula 2 01/28/25 10:55 01/28/25 10:21 01/28/25 09:51 01/28/25 08:05 Nasal Cannula 2 01/28/25 07:41 Nasal Cannula 2 01/28/25 06:59 Room Air 01/28/25 04:23 01/28/25 04:00 Nasal Cannula 2 01/28/25 03:53 01/28/25 00:00 Nasal Cannula 2 01/27/25 20:32 Nasal Cannula 2 28 01/27/25 20:00 Nasal Cannula 2 01/27/25 19:55 01/27/25 19:25 01/27/25 19:00 Room Air 01/27/25 15:28 Nasal Cannula 2 01/27/25 13:04 01/27/25 12:34 01/27/25 11:58 Nasal Cannula 2 01/27/25 09:38 01/27/25 09:38 Nasal Cannula 2 28 01/27/25 08:00 Nasal Cannula 2 01/27/25 07:00 Room Air 01/27/25 04:00 Nasal Cannula 2 01/27/25 02:42 Nasal Cannula 2 28 01/27/25 00:00 Nasal Cannula 2 01/26/25 22:07 01/26/25 22:00 32 01/26/25 22:00 CPAP 3 32 01/26/25 21:37 01/26/25 20:04 01/26/25 20:02 Nasal Cannula 2 28 01/26/25 20:00 Nasal Cannula 2 01/26/25 19:00 Room Air 01/26/25 16:00 Nasal Cannula 2 Procedures (ALL) - Central Line Placement PCM.CLCO: written consent Time out performed: Yes Patient placed pm monitor/pulse ox: Yes MD prep: mask, gown, gloves, other Centrial line prep: chlorhexidine scrub, sterile drapes applied Local anesthsia used: lidocane 1% Ultrasound used for placement: Yes (Left Basilic Vein ID with ultrasound. Vein cannulated under visualization.) Central line lumen ininserted: double (5.5 chilean arrowgard, 55 cm cath, 3.5 cm exposed) Post procedure: good blood return, all ports aspirated, flushed,capped, sterile dressing applied Post procedure xray: tip oc catheter in good position (appears SVC radiologist report pending) Patient tolerated procedure: Yes Complications: none
--- NOTE | 2025-01-29 13:50 | RAD ---
EXAM: CHEST, 1 VIEW HISTORY: picc line placement; COMPARISON: 01/25/2025 TECHNIQUE: AP portable FINDINGS: Left upper extremity PICC tip over the low SVC. Left lung apex is excluded. Median sternotomy wires. Loop recorder projects over the left heart. Stable cardiac silhouette. No focal consolidation, large pleural effusion, or visible pneumothorax. IMPRESSION: Left upper extremity PICC tip over the low SVC. No acute findings. THIS IS AN ELECTRONICALLY VERIFIED FINAL REPORT 01/29/2025 1:47 PM - Electronically signed by Aston Baldwin MD
--- NOTE | 2025-01-29 15:23 | NOTE.SOAP ---
Soap Note Note for Day of Date of Exam: 01/29/25 Subjective Data Subjective Data: Patient up in chair this afternoon. Talking with family members. Denies any symptoms. Objective Data Objective Data: Right Lower Extremity Exam: Lateral midfoot/ankle: Wound present measuring 3 cm x 0.5 cm x 0.5 cm with sutures intact. Small drainage of purulent tissue only about 1 cc. Everything after sanguinous. Macerated surrounding tissue. Medial midfoot/ankle: Wound present measuring 2 cm x 0.8 xm x 0.5 cm. Macerated surrounding edges. No purulence. Some drainage, no purulence. Assessment Assessment: POD Incision and drainage to right foot now with wounds on both sides of foot Plan Plan: - Dry dressing. - WBAT in CAM Boot - Cultures showing Staph (Not MRSA) - ID on board, wanting on Cefazolin for [address] is in place. - Blood cultures were positive, repeat pending. - Pathology report not back yet. - Arterial duplex is concerning for peripheral vascular disease that wound warrant CTA, his creatine is too high would better serve with a arteriogram on table. Discussed this with patient and his . They do not want intervention while at this hospital. They would prefer to undergo intervention closer to home and have follow-up closer to home. Will reiterate this to Dr. Sanchez and Dr. Wahl. Discussed with them the concern for the blood flow and that he will have trouble healing these wounds without intervention. They were understanding. - Discussed with Dr. Wahl and patient and his about closing the wounds tomorrow in OR and injecting Cerament G to surrounding tissues and bone. They were in agreement and understanding. - NPO after midnight placed. - To OR in morning for washout with antibiotic injection and closure of wounds, right foot.
[2025-01-29] MEDS: COREG TAB 12.5 MG PO SCH (21:24)
[2025-01-30] MEDS: HIBICLENS WASH EXT PRN (04:50)
[2025-01-30 06:16] LABS: BASOPHILS % (AUTO) 0.4 % (0.2-1.0); EOSINOPHILS # (AUTO) 0.1 x10^3/uL (0.0-0.2); EOSINOPHILS % (AUTO) 1.4 % (0.9-2.9); HEMATOCRIT 24.2 % (42.0-54.0); HEMOGLOBIN 8.2 g/dL (13.5-18.0); LYMPHOCYTES # (AUTO) 1.2 X10^3/uL (1.3-2.9); MEAN CORPUSCULAR HEMOGLOBIN 30.2 pg (27.0-34.0); MEAN CORPUSCULAR HGB CONC 33.7 g/dL (33.0-35.0); MEAN CORPUSCULAR VOLUME 89.6 fL (80.0-100.0); MONOCYTES # (AUTO) 0.8 x10^3/uL (0.3-0.8); MONOCYTES % (AUTO) 7.4 % (0.0-13.0); NEUTROPHILS # (AUTO) 8.1 x10^3/uL (2.2-4.8); NEUTROPHILS % (AUTO) 78.8 % (42.0-75.0); PLATELET COUNT 269 X10^3/uL (150.0-450.0); WHITE BLOOD COUNT 10.2 X10^3/uL (3.6-10.0)
[2025-01-30 06:23] LABS: ALBUMIN 1.5 g/dL (3.4-5.0); CALCIUM 9.1 mg/dL (8.5-10.1); CARBON DIOXIDE 19.6 mmol/L (21-32); COR CA(FOR HYPOALB) 11.1 mg/dL (8.5-10.1); CREATININE 2.15 mg/dL (0.70-1.30); POTASSIUM 4.3 mmol/L (3.5-5.1); TOTAL PROTEIN 6.8 g/dL (6.4-8.2)
[2025-01-30] MEDS: TOBRAMYCIN SULFATE ONE (08:52)
[2025-01-30] MEDS: VANCOMYCIN HCL ONE (08:52)
[2025-01-30] MEDS: NS 1,000 ML IV 1,000 ML ONE (09:14)
[2025-01-30] MEDS: NS 1,000 ML IV 200 ML IV PRN (09:30)
[2025-01-30] MEDS: MARCAINE 0.25% INJ ONE (09:48)
[2025-01-30] MEDS: BETADINE SOLN ONE ×2 (09:48→10:15)
[2025-01-30] MEDS: FENTANYL VIAL INJ 100 mcg ONE (09:48)
[2025-01-30] MEDS: ZOFRAN INJ 4 MG VIAL ONE (09:48)
[2025-01-30] MEDS: REGLAN INJ 10 MG VIAL ONE (09:48)
[2025-01-30] MEDS ORDERED: XYLOCAINE 2 % (PLAIN) ONE (09:48)
[2025-01-30] MEDS: DIPRIVAN VIAL 20 ML ONE (09:48)
[2025-01-30] MEDS: VERSED ONE (09:48)
[2025-01-30] MEDS: ANCEF VIAL 1 GRAM IV PRN (09:48)
[2025-01-30] MEDS: TORADOL 30 MG VIAL ONE (09:48)
[2025-01-30] MEDS ORDERED: KETAMINE HCL ONE (09:48)
[2025-01-30] MEDS: VERSED IVP PRN (09:50)
[2025-01-30] MEDS: FENTANYL VIAL INJ 100 mcg IVP PRN (09:51)
[2025-01-30] MEDS ORDERED: XYLOCAINE 2 % (PLAIN) PRN (09:51)
[2025-01-30] MEDS: DIPRIVAN VIAL 150 ML IVP PRN (09:52)
[2025-01-30] MEDS ORDERED: KETAMINE HCL PRN (09:52)
[2025-01-30] MEDS: ZOFRAN INJ 4 MG VIAL IVP PRN (09:55)
[2025-01-30] MEDS: REGLAN INJ 10 MG VIAL IVP PRN (09:57)
[2025-01-30] MEDS ORDERED: DEPO TESTOSTERONE IM SCH (10:00)
[2025-01-30] MEDS: DEPO-TESTOSTERONE IM NR (11:36)
[2025-01-30] MEDS ORDERED: PHARMACY COMMENT IV SCH (12:30)
[2025-01-31 06:21] LABS: BASOPHILS # (AUTO) 0.1 X10^3/uL (0.0-0.1); BASOPHILS % (AUTO) 0.8 % (0.2-1.0); EOSINOPHILS # (AUTO) 0.2 x10^3/uL (0.0-0.2); EOSINOPHILS % (AUTO) 1.5 % (0.9-2.9); HEMATOCRIT 22.7 % (42.0-54.0); HEMOGLOBIN 7.6 g/dL (13.5-18.0); LYMPHOCYTES # (AUTO) 1.1 X10^3/uL (1.3-2.9); LYMPHOCYTES % (AUTO) 11.2 % (21.0-51.0); MEAN CORPUSCULAR HEMOGLOBIN 30.2 pg (27.0-34.0); MEAN CORPUSCULAR HGB CONC 33.7 g/dL (33.0-35.0); MEAN CORPUSCULAR VOLUME 89.6 fL (80.0-100.0); MEAN PLATELET VOLUME 7.7 fL (7.4-11.0); MONOCYTES # (AUTO) 0.8 x10^3/uL (0.3-0.8); MONOCYTES % (AUTO) 8.2 % (0.0-13.0); NEUTROPHILS % (AUTO) 78.3 % (42.0-75.0); PLATELET COUNT 308 X10^3/uL (150.0-450.0); RED BLOOD COUNT 2.53 X10^6/uL (4.7-6.0); RED CELL DISTRIBUTION WIDTH 14.1 % (11.6-16.5); WHITE BLOOD COUNT 10.2 X10^3/uL (3.6-10.0)
[2025-01-31 06:44] LABS: ALBUMIN 1.3 g/dL (3.4-5.0); CARBON DIOXIDE 19.1 mmol/L (21-32); COR CA(FOR HYPOALB) 11.2 mg/dL (8.5-10.1); CREATININE 1.73 mg/dL (0.70-1.30); POTASSIUM 4.4 mmol/L (3.5-5.1); TOTAL PROTEIN 6.3 g/dL (6.4-8.2)
--- NOTE | 2025-01-31 07:05 | NOTE.SOAP ---
Soap Note Note for Day of Date of Exam: 01/31/25 Subjective Data Subjective Data: POD#1 Delayed closure with injection of antibiotic cement, right foot. Denies any acute problems. Doing well this morning. Objective Data Objective Data: Right Lower Extremity Exam: Surgical incisions are healing well. Sutures in place. Little maceration. on both incisions on the lateral and medial incisions. Little drainage from the cerament g antibiotics. Replaced the splint. Assessment Assessment: POD#1 Delayed closure with injection of antibiotic cement, right Plan Plan: - NWB to RLE - VSS. - Labs stable. - ID on board recommending 6 weeks cefazolin IV, PICC is already in place. - Blood cultures are negative. - Redressed with 4x4s, ABD, Webroll, Splint to RLE. - Patient understands he should be nonweight bearing unless he needs to transfer. - Okay for discharge from podiatry perspective. Cultures are negative. ID recs are finalized. Patient stable from our standpoint. - He should keep dressing intact until he sees Dr. Wahl unless instructed by us otherwise.
[2025-01-31 08:47] VITALS: O2SAT 94
[2025-01-31] MEDS: ALDACTONE TAB 25 MG PO SCH (10:19)
[2025-01-31 11:56] VITALS: BP 156/68; PULSE 53; TEMP 97.3
[2025-01-31 13:57] VITALS: RESP 18
== END 2025-01-31 11:45 | disposition home health service (06) | DRG 603 ==
LOC: ER 10:55 → MED/SURG 15:20
PROVIDERS: ADMIT Obstetrics & Gynecology Obstetrics; ATTEND Obstetrics & Gynecology Obstetrics
DX: M14.671 Charcot's joint, right ankle and foot; E11.65 Type 2 diabetes mellitus with hyperglycemia; E87.1 Hypo-osmolality and hyponatremia; Z79.4 Long term (current) use of insulin; N17.8 Other acute kidney failure; E78.5 Hyperlipidemia, unspecified; R06.02 Shortness of breath; E29.1 Testicular hypofunction; N18.9 Chronic kidney disease, unspecified; B95.61 Methicillin susceptible Staphylococcus aureus infection as the cause of diseases classified elsewhere; M00.871 Arthritis due to other bacteria, right ankle and foot; I25.810 Atherosclerosis of coronary artery bypass graft(s) without angina pectoris; R07.89 Other chest pain; L02.415 Cutaneous abscess of right lower limb; D63.1 Anemia in chronic kidney disease; I87.2 Venous insufficiency (chronic) (peripheral); Z29.89 Encounter for other specified prophylactic measures; R26.89 Other abnormalities of gait and mobility; Z95.1 Presence of aortocoronary bypass graft